=== PATIENT | female | born 1990 | race Caucasian/White ===

== ENCOUNTER → 2016-12-04 | Outpatient (CLI) | payer OTHER ==
[~2016-12-04] MED LIST: AZIT250T3 PO; CEFI5CAP PO; CONCCAP2
--- NOTE | 2016-12-05 11:18 | EKG ---
Date Performed: 12/04/2016 Time Performed: 14:06:18 PTAGE: 25 years EKG: Sinus rhythm WITH MARKED SINUS ARRHYTHMIA WITH SHORT OH INTERVAL BORDERLINE ECG NO PREVIOUS TRACING DOCTOR: Aden Gruber Interpretating Date/Time 12/05/2016 11:16:37
== END ==
LOC: HCAV 13:42
PROVIDERS: ATTEND Obstetrics & Gynecology Obstetrics
DX: O99.419 Diseases of the circulatory system complicating pregnancy, unspecified trimester (principal); I49.8 Other specified cardiac arrhythmias
CPT/HCPCS: 93005